=== PATIENT | female | born 1955 | race African-American/Black ===

== ENCOUNTER 2018-02-05 16:27 | Emergency (ER) | payer MEDICAID, SELFPAY ==
[~2018-02-05] VITALS: Ht 157.5 cm; Wt 84.1 kg
[2018-02-05 16:29] VITALS: BP 146/85
[2018-02-05] MEDS ORDERED: OXYcodone/APAP 5/325MG TABLET ONE (16:52)
[2018-02-05] MEDS ORDERED: OXYcodone/APAP 5/325MG TABLET PO ONE (17:00)
== END 2018-02-05 17:21 | disposition home or self-care (01) ==
LOC: ED 17:00
DX: K08.89 Other specified disorders of teeth and supporting structures (principal)
CPT/HCPCS: 99283

== ENCOUNTER 2018-06-05 23:48 | Emergency (ER) | payer MEDICAID ==
[~2018-06-05] VITALS: Ht 157.5 cm; Wt 81.0 kg
--- NOTE | 2018-06-06 01:22 | NUR ---
PT IN GOWN IN [facility]. NEW ORDERS RECEIVED FROM ERP. PT EDUCATED ON ER PROCESS AND POC AND VERBALIZES UNDERSTANDING. CALL LIGHT IS WITHIN REACH.
[2018-06-06] MEDS ORDERED: ONDANSETRON 2MG/ML, 2ML IVPush ONE (01:30)
[2018-06-06] MEDS ORDERED: SODIUM CHLORIDE FLUSH 10ML SYR IVF ONE (01:30)
[2018-06-06] MEDS ORDERED: MORPHINE SULFATE 4 MG/ML, 1ML IVPush PRN (01:30)
--- NOTE | 2018-06-06 01:30 | NUR ---
PT AMBULATES FROM ROOM TO RESTROOM WITH STEADY GAIT.
[2018-06-06] MEDS ORDERED: ONDANSETRON 2MG/ML, 2ML ONE (01:35)
[2018-06-06] MEDS ORDERED: MORPHINE SULFATE 4 MG/ML, 1ML ONE (01:35)
[2018-06-06 01:37] LABS: BASOPHILS # (AUTO) 0.03 x10^3/uL (0-0.1); BASOPHILS % (AUTO) 0 % (0-1); EOSINOPHILS % (AUTO) 2 % (1-7); LYMPHOCYTES # (AUTO) 2.75 x10^3/uL (1-3.4); LYMPHOCYTES % (AUTO) 32 % (22-44); MD NO; MEAN CORPUSCULAR HEMOGLOBIN 26.7 pg (27.0-34.8); MEAN CORPUSCULAR VOLUME 83.2 fL (80-100); MEAN PLATELET VOLUME 8.5 fL (7.4-10.4); MONOCYTES # (AUTO) 0.56 x10^3/uL (0.2-0.8); MONOCYTES % (AUTO) 7 % (2-9); NEUTROPHILS # (AUTO) 4.96 x10^3/uL (1.8-6.8); NEUTROPHILS % (AUTO) 58 % (42-75); PLATELET COUNT 370 x10^3/uL (130-400); RED BLOOD COUNT 4.13 x10^6/uL (3.82-5.3); RED CELL DISTRIBUTION WIDTH 14.7 % (9.6-15.2)
--- NOTE | 2018-06-06 01:39 | NUR ---
PT TO CT VIA [facility].
[2018-06-06 01:41] LABS: ALANINE AMINOTRANSFERASE 23 U/L (12-78); ALBUMIN 3.7 g/dL (3.4-5.0); ANION GAP 8 mmol/L (5-15); CALCIUM 8.5 mg/dL (8.5-10.1); CHLORIDE 110 mmol/L (98-107); CREATININE 0.77 mg/dL (0.55-1.02)
[2018-06-06 01:43] LABS: ALKALINE PHOSPHATASE 123 U/L (45-117); BILIRUBIN,TOTAL 0.1 mg/dL (0.2-1.0); TOTAL PROTEIN 6.4 g/dL (6.4-8.2)
--- NOTE | 2018-06-06 01:50 | NUR ---
PT MEDICATED PER MAR FOR PAIN AND NAUSEA. PT VSS AND UPDATED IN EMR. PT RESTING COMFORTABLY IN [facility] AT THIS TIME.
[2018-06-06 01:51] LABS: MICROSCOPIC AUTO
[2018-06-06 01:53] LABS: CULTURE INDICATED? YES
[2018-06-06] MEDS ORDERED: DEXAMETHASONE 4 MG/ML, 5ML ONE (02:15)
[2018-06-06] MEDS ORDERED: CEFDINIR 300 MG CAPSULE ONE (02:15)
[2018-06-06] MEDS ORDERED: CEFDINIR 300 MG CAPSULE PO ONE (02:30)
[2018-06-06] MEDS ORDERED: DEXAMETHASONE 4 MG/ML, 1ML IVPush ONE (02:30)
--- NOTE | 2018-06-06 02:33 | NUR ---
PT D/C WITH D/C SUMMARY AND SCRIPTS. ALL QUESTIONS ANSWERED. PT EDUCATED ABOUT SCRIPT AND F/U INSTRUCTIONS AND VERBALIZES UNDERSTANDING. PT AMBULATES TO REGISTRATION DESK WITH STEADY GAIT FOR D/C HOME. PT CALLED [employer] PER PT REQUEST FOR SELF PAY.
[2018-06-06 02:36] VITALS: BP 174/94
== END 2018-06-06 02:39 | disposition home or self-care (01) ==
LOC: ED 06-06 01:59
DX: N39.0 Urinary tract infection, site not specified (principal)
CPT/HCPCS: 36415; 74176; 80053; 81001; 85025; 87086; 96374; 96375; 99284; J1100; J2405